=== PATIENT | female | born 1985 | race Hispanic/Latino ===

== ENCOUNTER 2020-08-03 00:34 | Emergency (ER) | payer SELFPAY ==
[2020-08-03] VITALS (7 sets, daily range): BP systolic 90–106; BP diastolic 34–72; PULSE 52–78; RESP 16–18; TEMP 36.4; O2SAT 100
--- NOTE | ~2020-08-03 | US_ITS ---
EXAMINATION: US OB <=14 wk fetus w TV DATE: 08/03/2020 03:42 INDICATION: Nausea and vomiting. Mild abdominal pain. TECHNIQUE: Real-time transabdominal and transvaginal obstetric ultrasound. FINDINGS: No prior studies for comparison. The uterus measures 11.2 x 9.6 x 6.5 cm. There is an intrauterine gestational sac, with pole id entified. The crown rump length measures 1.07 cm, which correlates with a estimated gestational age of 7 weeks 1 day. No heart motions detected. Subchorionic hemorrhage is present measuring 4.5 x 3.7 x 1.7 cm. There is an echogenic structure in the right ovary measuring 2 cm, possibly a hemorrha gic corpus luteal cyst. Normal Doppler signal in the right ovary. Left ovary not visualized. IMPRESSION: 1. Intrauterine gestational sac with pole corresponding to 7 week 1 day gestation. No hea rt motions are detected, concerning for failed . Recommend follow-up with serial quantitativ e beta-hCG levels and ultrasound as clinically indicated. 2: Subchorionic hemorrhage measuring 4.5 x 3.7 x 1.7 cm. Reviewed, dictated and finalized at location B. IMPRESSION: 1. Intrauterine gestational sac with pole corresponding to 7 week 1 day g estation. No heart motions are detected, concerning for failed . Recommend follow-up with serial quantitative beta-hCG levels and ultrasound as clinically indicated. 2: Subchorionic hemorrhage measuring 4.5 x 3.7 x 1.7 cm.
[2020-08-03 01:14] LABS: Basophils Percent Auto 0.4 % (0.2-1.2); Eosinophils Absolute Auto 0.5 K/mm3 (0-0.3); Eosinophils Percent Auto 7.3 % (0-4.4); Hematocrit 36.4 % (37.0-47.0); Hemoglobin 12.3 g/dL (12.0-15.0); Immature Granulocyte Absolute 0.03 K/mm3 (0.00-0.031); Immature Granulocyte Percent A 0.4 % (0-0.5); Lymphocytes Absolute Auto 2.29 K/mm3 (0.9-3.2); Mean Corpuscular HGB Conc 33.8 g/dl (32-36); Mean Corpuscular Hemoglobin 31.1 pg (26-34); Mean Corpuscular Volume 92.2 fl (80-100); Monocytes Absolute Auto 0.5 K/mm3 (0.1-0.6); Monocytes Percent Auto 6.8 % (2.6-8.5); Neutrophils Absolute Auto 3.4 K/mm3 (1.3-6.7); Neutrophils Percent Auto 51.1 % (45.5-73.1); Platelet Count Result 156 k/mm3 (150-375); Red Blood Count 3.95 M/mm3 (4.2-5.4); Red Cell Distribution Width 12.2 % (11.5-14.5); White Blood Count 6.7 K/mm3 (4.5-10.0)
[2020-08-03 01:23] LABS: Alanine Aminotransferase 21 U/L (4-35); Alkaline Phosphatase 89 U/L (38-126); Anion Gap 11 mmol/L (8-16); Aspartate Amino Transferase 28 U/L (14-36); Bilirubin,Total 0.2 mg/dL (0.2-1.3); Blood Urea Nitrogen 12 mg/dL (7-17); Calcium 9.4 mg/dL (8.4-10.2); Carbon Dioxide 21 mmol/L (22-30); Chloride 106 mmol/L (98-107); Estimated Glomerular Filt Rate > 60; Glucose 98 mg/dL (65-105); Lipase 50 U/L (23-300); Potassium 3.8 mmol/L (3.4-5.0); Sodium 138 mmol/L (137-145)
[2020-08-03 01:24] LABS: Add Urine Microscopic? YES; Appearance Urine Cloudy (Clear); Bacteria Urine 4+ /hpf; Bilirubin Urine Negative (Negative); Calcium Oxalate Crystals Urine Present /hpf; Color Urine Yellow (Yellow); Glucose Urine UA Negative (Negative); Ketones Urine Negative (Negative); Leukocyte Esterase Ur 3+ LEU/UL (Negative); Mucus Urine Few /lpf; Nitrate Urine Positive (Negative); Protein Urine 1+ mg/dL (Negative); Specific Grav Ur 1.026 (1.001-1.035); Squamous Epithelial Cell Urine Many /hpf (Few); Urobilinogen Urine Negative mg/dL (<2.0); WBC Urine 16-20 /hpf
[2020-08-03 01:33] LABS: Blood Urine Negative (Negative)
[2020-08-03] MEDS: SODIUM CHLORIDE 0.9% IV 1,000 ML 999 ML IV CONT ×2 (02:49→03:57)
[2020-08-03 04:33] LABS: Lactic Acid Reflex 0.9 mmol/L (0.7-2.1)
--- NOTE | 2020-08-03 05:15 | ED.GENADULT ---
HPI - General Adult General Chief complaint: Abdominal Pain Stated complaint: headache, abd pain, 8 weeks Time Seen by Provider: 08/03/20 02:06 Source: RN notes reviewed History of Present Illness HPI narrative: Patient presents emergency department from home for a headache. Patient states she is proximately 8 weeks is followed by [facility] in [place] and has not seen them yet scheduled to have an ultrasound next week patient states that she has been having headaches over the past 1 week that are across the frontal forehead states she has a history of migraines that occur weekly and did take Tylenol at home with minimal relief she also states she been having intermittent nausea vomiting as well as intermittent abdominal cramping she denies any fevers or chills vision changes rhinorrhea chest pain shortness of breath vaginal bleeding or discharge or any other symptoms patient states she took Tylenol at home prior to arrival Patient is primarily Amharic-speaking is present for translation Related Data Allergies Allergy/AdvReac Type Severity Reaction Status Date / Time No Known Allergies Allergy Verified 08/03/20 02:48 Review of Systems Review of Systems: Narrative: Gen.: Denies fevers or chills ENT: Denies congestion Respiratory: Denies shortness of breath or cough CV: Denies chest pain or palpitations GI: See HPI reports Musculoskeletal: Denies back pain or muscle pain Neuro: See HPI Skin: Denies rash Except as documented, all other systems reviewed and negative [facility] Past Medical History Medical History (Updated 08/03/20 @ 05:20 by Faraz Eaton DO) Patient denies significant medical history Social History Social History (Updated 08/03/20 @ 05:16 by Faraz Eaton DO) Smoking status: Never smoker Exam Narrative: Exam Narrative: APPEARANCE: No acute distress, nontoxic, resting in bed EYES: EOMI, PERRL HEENT: Normocephalic, atraumatic, TMs clear bilaterally nares patent RESPIRATORY: No respiratory distress Clear to auscultation bilaterally with no rhonchi wheezing or rales. CARDIOVASCULAR: Regular rate and rhythm without murmurs rubs or gallops. ABDOMINAL: Soft, nontender, nondistended, no rebound or guarding MUSCULOSKELETAl: Moves all extremities. No clubbing, cyanosis or edema. NEURO: Awake and alert x 4. Following commands, speech normal, no focal deficits SKIN:: Warm, dry. No rashes lesions or abrasions PSYCHIATRIC: Normal affect/mood, Course Course Emergency Course: His abdomen is remained soft nontender in ED with no pain while in ER patient states headache is resolved at this time Discussed with Dr. Blount presentation work-up agrees with plan for discharge with [facility] for UTI and follow-up as an outpatient for findings on ultrasound of concerns of failed early Discussed with patient results of workup and diagnosis. Discussed need for follow-up with primary care, proper use of medication, and reasons to return to the emergency department. Patient understands and agrees to current treatment plan Vital Signs Vital signs: Vital Signs Temperature 97.6 F 08/03/20 00:50 Pulse Rate 78 08/03/20 00:50 Respiratory Rate 18 08/03/20 00:50 Blood Pressure 98/72 L 08/03/20 00:50 Pulse Oximetry 100 08/03/20 00:50 Temperature 97.6 F 08/03/20 00:50 Pulse Rate 62 08/03/20 04:43 Respiratory Rate 18 08/03/20 04:01 Blood Pressure 106/62 08/03/20 04:43 Pulse Oximetry 100 08/03/20 04:01 Medical Decision Making [facility] Narrative Medical decision making narrative: Patient presents for headache and abdominal pain nausea vomiting currently 8 weeks . On exam abdomen is soft and nontender. Patient is noted to have a UTI pressures have been in the low 100s and 90s the patient is been up walking several times with no dizziness or weakness given 2 L of fluids suspect the patient's normal pressures run in this region his heart rate is not el
== END 2020-08-03 05:31 | disposition home or self-care (01) ==
PROVIDERS: Emergency Provider Emergency Medicine
DX: O23.41 Unspecified infection of urinary tract in pregnancy, first trimester (principal); O26.891 Other specified pregnancy related conditions, first trimester; R51.9 Headache, unspecified; O46.8X1 Other antepartum hemorrhage, first trimester; O09.521 Supervision of elderly multigravida, first trimester; Z3A.01 Less than 8 weeks gestation of pregnancy
CPT/HCPCS: 36415; 76801; 76817; 80053; 81001; 81025; 83605; 83690; 84702; 85025; 87077; 87086; 87088; 87186; 96361; 96365; 99284; J0696; J7030

== ENCOUNTER 2020-08-11 10:55 | Emergency (ER) | payer MEDICAID, SELFPAY ==
[2020-08-11 11:16] VITALS: BP 100/65; PULSE 80; RESP 18; TEMP 36.5; O2SAT 100
[2020-08-11 11:35] LABS: Add Urine Microscopic? YES; Appearance Urine Cloudy (Clear); Bacteria Urine Trace /hpf; Bilirubin Urine Negative (Negative); Blood Urine 3+ (Negative); Color Urine Amber (Yellow); Glucose Urine UA Negative (Negative); Ketones Urine Trace mg/dL (Negative); Leukocyte Esterase Ur Negative LEU/UL (Negative); Mucus Urine Heavy /lpf; Nitrate Urine Negative (Negative); Protein Urine 2+ mg/dL (Negative); RBC Urine >75 /hpf (0-2); Specific Grav Ur 1.025 (1.001-1.035); Squamous Epithelial Cell Urine Moderate /hpf (Few)
--- NOTE | 2020-08-11 11:45 | ED.PREGNANCY ---
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 is interpreting) History of Present Illness HPI Narrative: This is a 35-year-old G5, P4 that presents to the emergency department for pelvic cramping. Reports she was about 8 weeks and had an ultrasound here a couple of weeks ago that showed no heart tones. She was supposed to follow-up with her [facility], but had pain yesterday so presented to [facility] and once again had an ultrasound that showed no heart tones. She was started on misoprostol. She has taken 2 doses of this. She is now having some mild cramping and vaginal bleeding. She has an appointment with her OB next week. Denies fever, vomiting, or dysuria. Related Data Allergies Allergy/AdvReac Type Severity Reaction Status Date / Time No Known Allergies Allergy Verified 08/03/20 02:48 Review of Systems Review of Systems: Narrative: CONSTITUTIONAL: Denies fever GASTROINTESTINAL: Reports abdominal pain, nausea. Denies vomiting GENITOURINARY: Denies dysuria or hematuria. All systems reviewed & are unremarkable except as noted in HPI and below PMFSH Past Medical History Medical History (Updated 08/11/20 @ 15:07 by Bianka Maurer PA-C) Patient denies significant medical history Social History Social History (Updated 08/03/20 @ 05:16 by Faraz Eaton DO) Smoking status: Never smoker Gender identity (if verbalized by the patient): Female Exam Narrative: Exam Narrative: GENERAL: Well-appearing, well-nourished, and in no acute distress. HEAD: Normocephalic, atraumatic. EYES: EOMI. CHEST: Clear to auscultation. No respiratory distress. No wheezes rales or rhonchi HEART: Regular rate and rhythm. No murmur heard. Normal peripheral pulses. ABDOMEN: Soft, nontender, nondistended, normal active bowel sounds. No CVA tenderness EXTREMITIES: Normal range of motion. No edema. SKIN: Warm, dry, no rash. NEURO: No focal deficits. Alert and oriented x3. PSYCH: Normal mood and affect PELVIC: Cervix open, small to moderate amount of dark red blood in the vaginal vault with blood clots/tissue Course Consultations Consultation #1: I did speak with her OB office to the nurse who would like patient to follow-up at her scheduled appointment and be given bleeding precautions. Date: 08/11/20 Time: 15:06 Vital Signs Vital signs: Vital Signs Temperature 97.7 F 08/11/20 11:16 Pulse Rate 80 08/11/20 11:16 Respiratory Rate 18 08/11/20 11:16 Blood Pressure 100/65 08/11/20 11:16 Pulse Oximetry 100 08/11/20 11:16 Temperature 97.7 F 08/11/20 11:16 Pulse Rate 68 08/11/20 14:13 Respiratory Rate 15 08/11/20 14:13 Blood Pressure 100/58 L 08/11/20 14:13 Pulse Oximetry 98 08/11/20 14:13 MDM - OB/Uterine Contractions MDM Narrative Medical decision making narrative: Patient presents to the emergency department after taking misoprostol for missed . Patient had an obstetrics ultrasound yesterday that showed intrauterine gestation without heart tones. This was done at [facility]. Patient given misoprostol for this. First dose was last night. Was having some pelvic cramping, but not much vaginal bleeding which prompted her to be seen again today. While in the ED she did start having some bleeding and passing clots. Her vitals are stable. Hemoglobin is normal. Metabolic panel and lipase without concerning findings. Beta hCG is downtrending from her last visit here about a week ago. She is O+. UA without evidence of infection. Likely contaminated catch/from vaginal bleeding. I did speak with her OB office to the nurse who would like patient to follow-up at her scheduled appointment and be given bleeding precautions. Patient is stable and felt appropriate for further outpatient evaluation. She was given war
[2020-08-11 12:01] LABS: Basophils Absolute Auto 0.1 K/mm3 (0.0-0.1); Basophils Percent Auto 0.6 % (0.2-1.2); Eosinophils Absolute Auto 0.5 K/mm3 (0-0.3); Hematocrit 39.3 % (37.0-47.0); Hemoglobin 12.9 g/dL (12.0-15.0); Immature Granulocyte Absolute 0.03 K/mm3 (0.00-0.031); Immature Granulocyte Percent A 0.3 % (0-0.5); Lymphocytes Absolute Auto 2.01 K/mm3 (0.9-3.2); Lymphocytes Percent Auto 21.3 % (18.3-44.2); Mean Corpuscular HGB Conc 32.8 g/dl (32-36); Mean Corpuscular Hemoglobin 30.6 pg (26-34); Mean Corpuscular Volume 93.1 fl (80-100); Mean Platelet Volume 11.2 fl (7.4-10.4); Monocytes Absolute Auto 0.5 K/mm3 (0.1-0.6); Monocytes Percent Auto 5.5 % (2.6-8.5); Neutrophils Absolute Auto 6.4 K/mm3 (1.3-6.7); Neutrophils Percent Auto 67.3 % (45.5-73.1); Platelet Count Result 150 k/mm3 (150-375); Red Blood Count 4.22 M/mm3 (4.2-5.4); Red Cell Distribution Width 12.4 % (11.5-14.5); White Blood Count 9.4 K/mm3 (4.5-10.0)
[2020-08-11 12:10] LABS: Prothrombin Time 13.8 Seconds (11.1-14.7)
[2020-08-11 12:11] LABS: Partial Thromboplastin Time 29.1 SECONDS (22.3-36.8)
[2020-08-11 12:14] LABS: Alanine Aminotransferase 22 U/L (4-35); Albumin Level 4.2 g/dL (3.5-5.1); Alkaline Phosphatase 71 U/L (38-126); Anion Gap 10 mmol/L (8-16); Aspartate Amino Transferase 31 U/L (14-36); Bilirubin,Total 0.6 mg/dL (0.2-1.3); Blood Urea Nitrogen 8 mg/dL (7-17); Calcium 9.1 mg/dL (8.4-10.2); Carbon Dioxide 21 mmol/L (22-30); Chloride 107 mmol/L (98-107); Estimated CRCL calculation 91 ml/min; Estimated Glomerular Filt Rate > 60; Glucose 117 mg/dL (65-105); Lipase 32 U/L (23-300); Potassium 3.5 mmol/L (3.4-5.0); Sodium 138 mmol/L (137-145)
[2020-08-11 14:13] VITALS: BP 100/58; PULSE 68; RESP 15; O2SAT 98
[2020-08-11 15:15] VITALS: BP 103/63; PULSE 60; RESP 15; O2SAT 98
== END 2020-08-11 15:16 | disposition home or self-care (01) ==
PROVIDERS: Physician Assistant; Emergency Provider Emergency Medicine
DX: O02.1 Missed abortion (principal); Z3A.08 8 weeks gestation of pregnancy
CPT/HCPCS: 36415; 80053; 81001; 83690; 84702; 85025; 85461; 85610; 85730; 87086; 99284